=== PATIENT | male | born 1990 | race Caucasian/White ===

== ENCOUNTER 2017-09-25 17:06 | Emergency (ER) | payer OTHER ==
[~2017-09-25] VITALS: Ht 180.3 cm; Wt 77.3 kg
[2017-09-25 18:39] VITALS: BP 127/72
== END 2017-09-25 19:00 | disposition home or self-care (01) ==
LOC: ED 17:06
DX: S01.112A Laceration without foreign body of left eyelid and periocular area, initial encounter (principal); W18.30XA Fall on same level, unspecified, initial encounter; Y92.414 Local residential or business street as the place of occurrence of the external cause; F10.120 Alcohol abuse with intoxication, uncomplicated; Z88.0 Allergy status to penicillin